=== PATIENT | male | born 1965 | race American Indian/Alaskan Native ===

== ENCOUNTER 2016-06-24 03:47 | Emergency (ER) | payer MEDICARE ==
[2016-06-24] MEDS ORDERED: PROVENTIL IH ONE (07:35)
[2016-06-24] MEDS ORDERED: ULTRAM PO ONE (07:35)
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
--- NOTE | 2016-06-24 08:00 | XRay Report ---
AP CHEST: HISTORY: Cough No comparison. Trace right pleural effusion is suspected. The lungs are clear. No pneumothorax. Heart and mediastinal structures are within normal limits. IMPRESSION: Trace right pleural effusion.
[2016-06-24 09:26] VITALS: BP 154/91
== END 2016-06-24 10:23 | disposition home or self-care (01) ==
LOC: ED 03:47
DX: J45.901 Unspecified asthma with (acute) exacerbation (principal); M54.5 Low back pain; I10 Essential (primary) hypertension; F17.200 Nicotine dependence, unspecified, uncomplicated; F14.10 Cocaine abuse, uncomplicated
CPT/HCPCS: 71010; 93005; 93010; 94640; 99284